=== PATIENT | male | born 1955 | race Caucasian/White ===

== ENCOUNTER 2017-10-07 13:29 | Emergency (ER) | payer OTHER ==
[2017-10-07 13:34] VITALS: BP 144/90; PULSE 87; TEMP 97.5; BMI 27.4
[2017-10-07] MEDS ORDERED: TETANUS AND DIPHTHERIA TOXOID 0.5 ML DISP.SYRIN IM ONE (13:41)
--- NOTE | 2017-10-07 13:47 | PDOC ---
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 Patient washed area immediately. Tetanus unknown, patient source [id number] Timing: just prior to arrival Severity: moderate Exposed Location: Right: Finger(s) (finger) Assessing Significant Risk PEP: Yes Potentially Infectious Fluid Past History - Past Medical History Allergies/Adverse Reactions: Allergies Allergy/AdvReac Type Severity Reaction Status Date / Time No Known Allergies Allergy Verified 10/07/17 13:31 Home Medications: Ambulatory Orders NK [No Known Home Medication] 10/07/17 COPD: No - Suicide/Smoking/Psychosocial Hx Smoking History: Never smoked Have you smoked in the past 12 months: No Information on smoking cessation initiated: No Hx Alcohol Use: No Drug/Substance Use Hx: No Substance Use Type: None Review of Systems - Review of Systems Constitutional: No: Symptoms Reported HEENTM: No: Symptoms Reported Respiratory: No: Symptoms reported Cardiac (ROS): No: Symptoms Reported Musculoskeletal: No: Joint Pain, Joint Swelling Integumentary: Yes: Other (needle stick to right first finger, nonvisible, no active bleeding). No: Erythema Neurological: No: Symptoms reported Hematologic/Lymphatic: No: Symptoms Reported All Other Systems: Reviewed and Negative *Physical Exam - Vital Signs Last Vital Signs Temp Pulse Resp BP Pulse Ox 97.5 F L 87 18 144/90 100 10/07/17 13:31 10/07/17 13:31 10/07/17 13:31 10/07/17 13:31 10/07/17 13:31 - Physical Exam General Appearance: Yes: Appropriately Dressed. No: Apparent Distress Respiratory/Chest: positive: Lungs Clear, Normal Breath Sounds Lymphatic: negative: Adenopathy Musculoskeletal: positive: Normal Inspection Extremity: positive: Normal Capillary Refill, Normal Inspection, Normal Range of Motion. negative: Tender, Swelling, Erythema Integumentary: positive: Normal Color, Dry. negative: Erythema, Swelling, Ecchymosis, Bruising Neurologic: positive: Alert, Normal Mood/Affect Post Exposure - ED Protocol - Exposure Treatment Washing/Decontamination: Soap/Water Source Patient HIV Status:: Unknown (source patient requested testing.) Is PEP indicated?: Yes Prophylaxis for HIV discussed?: Yes Baseline bloods drawn prophylaxis:(use *Exposure-Hosp Emp): Yes Additional Treatment:: DT - Referrals Employee Referred to Employee Health:: Yes Medical Decision Making - Medical Decision Making 10/07/17 14:02 A/P: Patient with needlestick to right thumb, small punctate patricia noted, labs drawn and sent, patient has opted to wait for results from source of HIV and hepatitis status. He is deferring starting antivirals at this time. Will follow -up on Sunday with occupational medicine. *DC/Admit/Observation/Transfer Diagnosis at time of Disposition: Needle stick injury - Discharge Dispostion Disposition: HOME Condition at time of disposition: Stable Admit: No - Referrals Referrals: Bienvenido Rosado MD [Primary Care Provider] - - Patient Instructions Printed Discharge Instructions: How to Handle Body Fluid Exposure -- Healthcare Worker Additional Instructions: A/P: Patient here with needlestick to right finger, labs drawn and sent patient is waiting for source patient to be tested and will decide to take ice and try Centravite within the next 24 hours. Will follow-up with occupational medicine tomorrow. - Post Discharge Activity Forms/Work/School Notes: Back to Work
[2017-10-07 14:03] LABS: BASO % 1.2 % (0-2.0); EOS % 1.8 % (0-4.5); HEMATOCRIT 43.8 % (35.4-49); MCH 29.1 pg (25.7-33.7); MCHC 34.2 g/dl (32.0-35.9); MEAN CELL VOLUME 85.1 fl (80-96); MONO % 5.1 % (3.8-10.2); NEUT % 63.9 % (42.8-82.8); PLATELET COUNT 193 K/MM3 (134-434); RBC 5.14 M/mm3 (4.00-5.60); RDW 13.9 % (11.9-15.9); WHITE BLOOD COUNT 5.9 K/mm3 (4.0-10.0)
[2017-10-07 14:44] LABS: ALBUMIN 4.3 g/dl (3.4-5.0); ANION GAP 7 (8-16); BILIRUBIN,TOTAL 0.9 mg/dL (0.2-1.0); BLOOD UREA NITROGEN 19 mg/dL (7-18); CALCIUM 8.3 mg/dL (8.5-10.1); CHLORIDE 110 mmol/L (98-107); CHOLESTEROL 97 mg/dL (50-200); CO2 24 mmol/L (21-32); CREATININE 0.9 mg/dL (0.7-1.3); GAMMA GLUTAMYL TRANSPEPTIDASE 44 U/L (5-85); GLUCOSE,RANDOM 132 mg/dL (74-106); LDH 153 U/L (87-241); PHOSPHOROUS 3.1 mg/dL (2.5-4.9); SGOT/AST 22 U/L (15-37); SGPT/ALT 43 U/L (12-78); SODIUM 141 mmol/L (136-145); TOT PROT 6.7 g/dl (6.4-8.2); TRIGLYCERIDES 145 mg/dL (35-160); URIC ACID 3.5 mg/dL (2.6-7.2)
[2017-10-07 14:45] LABS: ALK PHOS 57 U/L (45-117)
[2017-10-08 14:14] LABS: HBsAG SCREEN Negative (Negative); HEPATITIS B CORE ANTIBODY Negative (Negative)
== END 2017-10-07 14:14 | disposition home or self-care (01) ==
LOC: JERFT 13:29
PROC: 3E0234Z Introduction of Serum, Toxoid and Vaccine into Muscle, Percutaneous Approach (ICD-10-PCS; principal; 2017-10-07)
DX: Z77.21 Contact with and (suspected) exposure to potentially hazardous body fluids (principal); W46.1XXA Contact with contaminated hypodermic needle, initial encounter; Y93.F9 Activity, other caregiving; Y92.239 Unspecified place in hospital as the place of occurrence of the external cause; Y99.8 Other external cause status
CPT/HCPCS: 36415; 80053; 82465; 82977; 83615; 84100; 84478; 84550; 85025; 86704; 87340; 87389; 99282-25

== ENCOUNTER 2018-11-27 06:39 | Emergency (ER) | payer OTHER ==
[2018-11-27] MEDS ORDERED: SODIUM CHLORIDE 1,000 ML IV STA ×2 (06:40→07:23)
[2018-11-27] MEDS ORDERED: KETOROLAC TROMETHAMINE 30 MG/1 ML VIAL IVPUSH ONE (06:40)
--- NOTE | 2018-11-27 06:41 | PDOC ---
History of Present Illness - General Chief Complaint: Pain, Acute Stated Complaint: LEFT FLANK PAIN RADIATING INTO LLQ Time Seen by Provider: 11/27/18 06:40 - History of Present Illness Initial Comments: 11/27/18 06:43 This 63-year-old male with a history of HTN/HLD/NIDDM/anxiety presents with left flank pain/LUQ that began yesterday afternoon. Patient describes the pain as waxing and waning and is somewhat worse with deep breathing. No previous history of this type of pain. No nausea/vomiting/fever/chills. Patient has no previous history of renal stones although he has family history of renal colic.He denies dysuria/hematuria/urinary frequency. Patient was told he had diverticula on colonoscopy 5 years ago but has had no history of acute diverticulitis. He had mid abdominal discomfort and diarrhea 2 days ago, which patient thought was related to dietary indiscretion. Medications : Metformin Lipitor Lisinopril Paxil. No known ALLERGIES Past History - Past Medical History Allergies/Adverse Reactions: Allergies Allergy/AdvReac Type Severity Reaction Status Date / Time No Known Allergies Allergy Verified 11/27/18 06:40 Home Medications: Ambulatory Orders Lisinopril [Zestril] 2.5 mg PO DAILY 11/27/18 Metformin HCl [Metformin HCl ER] 500 mg PO BID 11/27/18 Paroxetine HCl [Paxil] 10 mg PO DAILY 11/27/18 Simvastatin 10 mg PO DAILY 11/27/18 COPD: No - Suicide/Smoking/Psychosocial Hx Smoking History: Never smoked Have you smoked in the past 12 months: No Hx Alcohol Use: No Drug/Substance Use Hx: No Substance Use Type: None Review of Systems - Review of Systems Able to Perform ROS?: Yes Comments:: 12 point review of systems is negative except for what is noted in the history of present illness *Physical Exam - Physical Exam Comments: GENERAL: Adult male, alert and oriented 3 in mild distress secondary to left upper quadrant/left flank pain HEAD: Normal with no signs of trauma. EYES: PERRLA, EOMI, sclera anicteric, conjunctiva clear. ENT: Ears normal, nares patent, oropharynx clear without exudates. Dry mucous membranes. NECK: Normal range of motion, supple without lymphadenopathy, JVD, or masses. LUNGS: Breath sounds equal, clear to auscultation bilaterally. No wheezes, and no crackles. HEART:Regular rate and rhythm, normal S1 and S2 without murmur, rub or gallop. ABDOMEN:.normal bowel sounds; moderate left upper quadrant tenderness (just below left costal margin) without guarding or rebound tenderness No masses palpated EXTREMITIES: Normal range of motion, no edema. No clubbing or cyanosis. No erythema, or tenderness. NEUROLOGICAL: Cranial nerves II through XII grossly intact. Normal speech. No focal neurological deficits. SKIN: Warm, Dry, normal turgor, no rashes or lesions noted. ED Treatment Course - LABORATORY CBC & Chemistry Diagram: 11/27/18 06:50 11/27/18 06:50 Medical Decision Making - Medical Decision Making 11/27/18 07:02 63-year-old man presents with a one-day history of left flank/left upper quadrant pain without accompanying nausea/vomiting/diarrhea/fever. No previous history of this type of pain although he has a family history of renal stones. Exam notable for point tenderness in the left upper quadrant along with exacerbation of pain with deep breathing. CBC/chemistry profile has been sent to the lab; patient unable to produce urine specimen but urinalysis/urine culture and sensitivity will be sent. IV hydration with normal saline begun and patient given Toradol 30 mg IV for analgesia. Differential diagnosis includes renal colic/diverticulitis/pancreatic / splenic abnormalities. CT imaging planned Case signed out to at end of shift. *DC/Admit/Observation/Transfer Diagnosis at time of Disposition: Musculoskeletal pain - Discharge Dispostion Disposition: HOME Condition at time of disposition: Improved - Referrals - Patient Instructions Printed Discharge Instructions: DI for Musculoskeletal Pain Additional Instructions: The nature of your symptoms, examination, and lab findings make kidney stone or other serious abdominal disease highly unlikely. However, if the pain persists or worsens, or there are other associated symptoms that develop such as fever/chills, nausea, vomiting, urinary tract symptoms of dysuria, frequency, urgency, hesitancy, or hematuria, return to the emergency room immediately or contact primary physician. Otherwise, strain all urine and keep any particulate matter, use anti- inflammatory/pain medication as needed for 2-3 days, gentle ice massage to the lower rib cage as directed. Further consultation with your urologist is also recommended. - Post Discharge Activity Forms/Work/School Notes: Back to Work
[2018-11-27 06:57] VITALS: TEMP 97.6; BMI 25.8
[2018-11-27] MEDS ORDERED: morphine CARPU-JECT 2 MG/1 ML DISP.SYRIN IVPUSH ONE (07:10)
[2018-11-27] MEDS ORDERED: morphine SULFATE 4 MG/ML VIAL ONE (07:12)
[2018-11-27 07:28] LABS: EOS % 1.2 % (0-4.5); HEMOGLOBIN 15.8 GM/dl (11.7-16.9); LYMPH % 12.3 % (8-40); MCH 29.2 pg (25.7-33.7); MCHC 33.6 g/dl (32.0-35.9); MEAN CELL VOLUME 86.9 fl (80-96); MEAN PLT VOLUME 9.9 fl (7.5-11.1); MONO % 5.1 % (3.8-10.2); NEUT % 81.4 % (42.8-82.8); PLATELET COUNT 219 K/MM3 (134-434); RBC 5.41 M/mm3 (4.00-5.60); RDW 14.1 % (11.9-15.9); WHITE BLOOD COUNT 10.5 K/mm3 (4.0-10.8)
[2018-11-27 07:43] LABS: ALBUMIN 4.7 g/dl (3.4-5.0); ALK PHOS 51 U/L (45-117); ANION GAP 13 MMOL/L (8-16); BILIRUBIN,TOTAL 1.5 mg/dl (0.2-1); BLOOD UREA NITROGEN 15 mg/dl (7-18); CALCIUM 9.5 mg/dl (8.5-10); CHLORIDE 103 mmol/L (98-107); CO2 22 mmol/L (21-32); CREATININE 0.8 mg/dl (0.55-1.3); GLUCOSE,RANDOM 135 mg/dl (74-106); POTASSIUM 3.9 mmol/L (3.5-5.1); SGOT/AST 25 U/L (15-37); SGPT/ALT 35 U/L (13-61); SODIUM 138 mmol/L (136-145); TOT PROT 7.4 g/dl (6.4-8.2)
--- NOTE | 2018-11-27 07:54 | PDOC ---
*Physical Exam - Vital Signs Last Vital Signs Temp Pulse Resp BP Pulse Ox 97.6 F 78 17 130/89 98 11/27/18 06:50 11/27/18 06:50 11/27/18 06:50 11/27/18 06:50 11/27/18 06:50 - Physical Exam Comments: 11/27/18 08:57 CBC, chemistries, without significant abnormalities Urinalysis shows 1+ blood, but this has been present for at least 2 years, with urology consult Dr. Muñoz 2015. The character of the patient's pain, the absence of nausea or vomiting, the absence of any urinary tract symptoms with normal urination, his relative comfort sitting still, exquisite point tenderness over the lower rib cage, aggravation of the pain by moving and bending, with relative comfort at rest, and completely benign abdominal exam strongly mitigate against kidney stone or other acute intra-abdominal processes. This was thoroughly discussed with the patient and his brother, who has had recurrent kidney stones in the past, and the necessity of CT imaging and radiation exposure was raised. It was agreed that the patient would strain his urines, use pain medication as needed, and return to the ER if the pain worsened or if any further symptoms develop such as dysuria, frequency, urgency , hesitancy, hematuria, fever or chills, nausea, nausea, vomiting, or bowel symptoms. Discharged fully ambulatory in no significant pain or other distress with mother to follow-up closely as directed. ED Treatment Course - LABORATORY CBC & Chemistry Diagram: 11/27/18 06:50 11/27/18 06:50 - Medications Given in the ED: ED Medications Discontinued Medications Generic Name Dose Route Start Last Admin Trade Name Juan Alberto PRN Reason Stop Dose Admin Sodium Chloride 1,000 mls @ 1,000 mls/hr 11/27/18 06:40 11/27/18 06:45 Normal Saline - IV 11/27/18 07:39 1,000 mls/hr ASDIR STA Administration Ketorolac Tromethamine 30 mg 11/27/18 06:40 11/27/18 06:57 Toradol Injection - IVPUSH 11/27/18 06:41 30 mg ONCE ONE Administration Morphine Sulfate 2 mg 11/27/18 07:10 11/27/18 07:19 Morphine Injection - IVPUSH 11/27/18 07:11 2 mg ONCE ONE Administration *DC/Admit/Observation/Transfer Diagnosis at time of Disposition: Musculoskeletal pain - Discharge Dispostion Disposition: HOME Condition at time of disposition: Improved Decision to Admit order: No - Referrals - Patient Instructions Printed Discharge Instructions: DI for Musculoskeletal Pain Additional Instructions: The nature of your symptoms, examination, and lab findings make kidney stone or other serious abdominal disease highly unlikely. However, if the pain persists or worsens, or there are other associated symptoms that develop such as fever/chills, nausea, vomiting, urinary tract symptoms of dysuria, frequency, urgency, hesitancy, or hematuria, return to the emergency room immediately or contact primary physician. Otherwise, strain all urine and keep any particulate matter, use anti- inflammatory/pain medication as needed for 2-3 days, gentle ice massage to the lower rib cage as directed. Further consultation with your urologist is also recommended. - Post Discharge Activity Forms/Work/School Notes: Back to Work
[2018-11-27 08:45] LABS: EPITHELIAL CELLS 1+ /hpf
[2018-11-27 09:10] VITALS: BP 119/79; PULSE 86
== END 2018-11-27 09:16 | disposition home or self-care (01) ==
LOC: FER 06:39
PROC: 3E0333Z Introduction of Anti-inflammatory into Peripheral Vein, Percutaneous Approach (ICD-10-PCS; principal; 2018-11-27)
PROC: 3E033NZ Introduction of Analgesics, Hypnotics, Sedatives into Peripheral Vein, Percutaneous Approach (ICD-10-PCS; 2018-11-27)
PROC: 3E0337Z Introduction of Electrolytic and Water Balance Substance into Peripheral Vein, Percutaneous Approach (ICD-10-PCS; 2018-11-27)
DX: M79.18 Myalgia, other site (principal); I10 Essential (primary) hypertension; E78.5 Hyperlipidemia, unspecified; E11.9 Type 2 diabetes mellitus without complications; F41.9 Anxiety disorder, unspecified
CPT/HCPCS: 36415; 80053; 81003; 81015; 85025; 99282-25; J7030